=== PATIENT | male | born 1990 | race Caucasian/White ===

== ENCOUNTER 2021-10-19 18:34 | Emergency (ER) | payer SELFPAY ==
[2021-10-19] MEDS ORDERED: CYCLOBENZAPRINE10 MG PO (20:08)
[2021-10-19] MEDS ORDERED: MEDROL 4MG DOSEP4 MG PO (20:08)
== END 2021-10-19 20:46 | disposition home or self-care (01) ==
LOC: FER 18:34
DX: M54.32 Sciatica, left side (principal)
CPT/HCPCS: 99283; J1100